=== PATIENT | female | born 1965 | race Caucasian/White ===

== ENCOUNTER 2018-09-06 08:56 | Emergency (ER) | payer OTHER ==
[2018-09-06 09:08] VITALS: BP 127/80
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
[2018-09-06] MEDS ORDERED: TETANUS/DIPHTHERIA/PERTUSSIS 0.5 ML SYRINGE IM ONE (10:09)
[2018-09-06] MEDS ORDERED: MUPIROCIN 2% OINT 1 GM TOP STA (10:09)
== END 2018-09-06 11:01 | disposition home or self-care (01) ==
LOC: ED 08:56
DX: S00.81XA Abrasion of other part of head, initial encounter (principal); I10 Essential (primary) hypertension; Y04.2XXA Assault by strike against or bumped into by another person, initial encounter; Y93.F9 Activity, other caregiving; Y92.238 Other place in hospital as the place of occurrence of the external cause; Y99.0 Civilian activity done for income or pay; Z23 Encounter for immunization
CPT/HCPCS: 90471; 90715; 99282; A9270

== ENCOUNTER 2018-12-29 21:34 | Emergency (ER) | payer BC ==
--- NOTE | 2018-12-29 21:39 | ED Physician Documentation ---
PD HPI MAJOR TRAUMA - Stated complaint Stated Complaint: INJ - Chief complaint Chief Complaint: Trauma Hd/Nk - History obtained from History obtained from: Patient - History of Present Illness Mechanism of injury: Fell (She tripped and fell and hit her face on the ground. She was briefly unconscious reportedly. Tetanus is up-to-date. 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 - Present Medications Home Medications: Ambulatory Orders Medication Instructions Recorded Confirmed Cyclobenzaprine [Flexeril] 10 mg PO 09/06/18 Levothyroxine [Synthroid] 125 mcg PO QDAC 09/06/18 09/06/18 Lisinopril 20 mg PO 09/06/18 09/06/18 Naproxen Sodium 220 mg PO 09/06/18 09/06/18 Omeprazole 20 mg PO 09/06/18 rOPINIRole [Requip] 0.25 mg PO QPM 09/06/18 09/06/18 raNITIdine [Zantac] 150 mg PO DAILY 09/06/18 09/06/18 - Allergies Allergies/Adverse Reactions: Allergies Allergy/AdvReac Type Severity Reaction Status Date / Time No Known Drug Allergies Allergy Verified 12/29/18 21:37 - Social History Does the pt smoke?: No Smoking Status: Never smoker - Immunizations Immunizations: TDAP >10years/unknown PD ED PE NORMAL - Vitals Vital signs reviewed: Yes - General General: Alert and oriented X 3, No acute distress - HEENT HEENT: PERRL, EOMI, Other (Abrasions over the left face with periorbital swelling on the left, but no obvious deformity.) - Neck Neck: No bony TTP - Cardiac Cardiac: RRR, No murmur - Respiratory Respiratory: No respiratory distress, Clear bilaterally - Abdomen Abdomen: Non tender - Derm Derm: Normal color, Warm and dry - Neuro Neuro: Alert and oriented 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, 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, Normal speech Results - Vitals Vitals: Vital Signs - 24 hr 12/29/18 21:35 Temperature 36.0 C L Heart Rate 100 Respiratory 18 Rate Blood Pressure 145/90 H O2 Saturation 96 Oxygen O2 Source Room air - Rads (name of study) CT Head/face/Cspine Radiology: EMP read contemporaneously (NAD) Departure - Departure Disposition: 01 Home, Self Care Clinical Impression: Facial contusion Qualifiers: Encounter type: initial encounter Qualified Code(s): S00.83XA - Contusion of other part of head, initial encounter Fall Qualifiers: Encounter type: initial encounter Qualified Code(s): W19.XXXA - Unspecified fall, initial encounter Head injury Qualifiers: Encounter type: initial encounter Qualified Code(s): S09.90XA - Unspecified injury of head, initial encounter Condition: Good Record reviewed to determine appropriate education?: Yes Instructions: ED Head Injury Closed Comments: Apply jjaf-dgg-rkmynwy bacitracin to your wounds 3 times a day. You can wash with soap and water. Return as needed for new or worsening symptoms. Your blood pressure was elevated today on check into the emergency department. This does not mean that you have hypertension, it is a common phenomenon to come to the emergency department and have elevated blood pressure. I recommend that you see your primary care physician within the week to have it rechecked when you are feeling better.
[2018-12-29] MEDS ORDERED: ONDANSETRON ODT 4 MG TABLET TL STA (21:57)
[2018-12-29] MEDS ORDERED: ACETAMINOPHEN 325 MG TABLET PO STA (22:18)
--- NOTE | 2018-12-29 22:48 | CT Report ---
Reason: head inj/facial inj Procedure Date: 12/29/2018 Accession Number: [id number] / [id number] Procedure: CT - CERVICAL SPINE WO CPT Code: FULL RESULT: EXAM: CT HEAD, MAXILLOFACIAL, CERVICAL SPINE EXAM DATE: 12/29/2018 10:17 PM. CLINICAL HISTORY: Injury to the left side of the face, laceration, swelling, pain, fell in the parking lot. COMPARISON: FACIAL BONES W/O 12/29/2018 10:07 PM CERVICAL SPINE W/O 12/29/2018 10:07 PM. TECHNIQUE: Noncontrast axial sections through the head, face, and cervical spine with multiplanar reconstructions through the face and cervical spine. FINDINGS: HEAD CT: Parenchyma: No intraparenchymal hemorrhage. No evidence of mass, midline shift, or CT findings of infarction. Ku-white differentiation is distinct. Extraaxial Spaces: Normal for age. No subdural or epidural collections identified. Ventricles: Normal in size and position. Bones: No evidence of fracture or calvarial defect. Other: Moderate left-sided periorbital soft tissue swelling. MAXILLOFACIAL CT: Bones: No fracture or bone lesion. Temporomandibular Joints: The temporomandibular joints are symmetric and normally located. Sinuses: Normal. No mucosal thickening or fluid levels. Other: Moderate left-sided periorbital soft tissue swelling. CERVICAL SPINE CT: Alignment: Normal. No scoliosis or spondylolisthesis. Bones: No fracture or bone lesion. Interspace Levels/Facets: There is no significant central canal stenosis demonstrated. Other: The paravertebral and prevertebral soft tissues are normal. The lung apices are clear. IMPRESSION: Head CT: 1. No acute intracranial abnormality. 2. Moderate left-sided periorbital and frontal region soft tissue swelling. Maxillofacial CT: 1. No acute osseous abnormality demonstrated. 2. Moderate left periorbital and frontal region soft tissue swelling. Cervical spine CT: 1. No acute osseous abnormality demonstrated. RADIA
--- NOTE | 2018-12-29 22:48 | CT Report ---
Reason: head inj/facial inj Procedure Date: 12/29/2018 Accession Number: [id number] / [id number] Procedure: CT - HEAD WO CPT Code: FULL RESULT: EXAM: CT HEAD, MAXILLOFACIAL, CERVICAL SPINE EXAM DATE: 12/29/2018 10:17 PM. CLINICAL HISTORY: Injury to the left side of the face, laceration, swelling, pain, fell in the parking lot. COMPARISON: FACIAL BONES W/O 12/29/2018 10:07 PM CERVICAL SPINE W/O 12/29/2018 10:07 PM. TECHNIQUE: Noncontrast axial sections through the head, face, and cervical spine with multiplanar reconstructions through the face and cervical spine. FINDINGS: HEAD CT: Parenchyma: No intraparenchymal hemorrhage. No evidence of mass, midline shift, or CT findings of infarction. Ku-white differentiation is distinct. Extraaxial Spaces: Normal for age. No subdural or epidural collections identified. Ventricles: Normal in size and position. Bones: No evidence of fracture or calvarial defect. Other: Moderate left-sided periorbital soft tissue swelling. MAXILLOFACIAL CT: Bones: No fracture or bone lesion. Temporomandibular Joints: The temporomandibular joints are symmetric and normally located. Sinuses: Normal. No mucosal thickening or fluid levels. Other: Moderate left-sided periorbital soft tissue swelling. CERVICAL SPINE CT: Alignment: Normal. No scoliosis or spondylolisthesis. Bones: No fracture or bone lesion. Interspace Levels/Facets: There is no significant central canal stenosis demonstrated. Other: The paravertebral and prevertebral soft tissues are normal. The lung apices are clear. IMPRESSION: Head CT: 1. No acute intracranial abnormality. 2. Moderate left-sided periorbital and frontal region soft tissue swelling. Maxillofacial CT: 1. No acute osseous abnormality demonstrated. 2. Moderate left periorbital and frontal region soft tissue swelling. Cervical spine CT: 1. No acute osseous abnormality demonstrated. RADIA
--- NOTE | 2018-12-29 22:48 | CT Report ---
Reason: head inj/facial inj Procedure Date: 12/29/2018 Accession Number: [id number] / [id number] Procedure: CT - MAXILLOFACIAL WO CPT Code: FULL RESULT: EXAM: CT HEAD, MAXILLOFACIAL, CERVICAL SPINE EXAM DATE: 12/29/2018 10:17 PM. CLINICAL HISTORY: Injury to the left side of the face, laceration, swelling, pain, fell in the parking lot. COMPARISON: FACIAL BONES W/O 12/29/2018 10:07 PM CERVICAL SPINE W/O 12/29/2018 10:07 PM. TECHNIQUE: Noncontrast axial sections through the head, face, and cervical spine with multiplanar reconstructions through the face and cervical spine. FINDINGS: HEAD CT: Parenchyma: No intraparenchymal hemorrhage. No evidence of mass, midline shift, or CT findings of infarction. Ku-white differentiation is distinct. Extraaxial Spaces: Normal for age. No subdural or epidural collections identified. Ventricles: Normal in size and position. Bones: No evidence of fracture or calvarial defect. Other: Moderate left-sided periorbital soft tissue swelling. MAXILLOFACIAL CT: Bones: No fracture or bone lesion. Temporomandibular Joints: The temporomandibular joints are symmetric and normally located. Sinuses: Normal. No mucosal thickening or fluid levels. Other: Moderate left-sided periorbital soft tissue swelling. CERVICAL SPINE CT: Alignment: Normal. No scoliosis or spondylolisthesis. Bones: No fracture or bone lesion. Interspace Levels/Facets: There is no significant central canal stenosis demonstrated. Other: The paravertebral and prevertebral soft tissues are normal. The lung apices are clear. IMPRESSION: Head CT: 1. No acute intracranial abnormality. 2. Moderate left-sided periorbital and frontal region soft tissue swelling. Maxillofacial CT: 1. No acute osseous abnormality demonstrated. 2. Moderate left periorbital and frontal region soft tissue swelling. Cervical spine CT: 1. No acute osseous abnormality demonstrated. RADIA
[2018-12-29] MEDS ORDERED: HYDROcod/ACET 5/325 Prepack 4 PO STA (22:51)
[2018-12-29 23:04] VITALS: BP 138/84
== END 2018-12-29 23:04 | disposition home or self-care (01) ==
LOC: ED 21:34
DX: S00.81XA Abrasion of other part of head, initial encounter (principal); S00.83XA Contusion of other part of head, initial encounter; S09.90XA Unspecified injury of head, initial encounter; W01.0XXA Fall on same level from slipping, tripping and stumbling without subsequent striking against object, initial encounter; Y92.481 Parking lot as the place of occurrence of the external cause; I10 Essential (primary) hypertension
CPT/HCPCS: 70450; 70486; 72125; 99282; 99283; A9270; Q0162

== ENCOUNTER 2019-07-30 06:34 | Outpatient (CLI) | payer BC ==
[2019-07-30 06:50] LABS: BASOPHILS # (AUTO) 0.1 10^3/uL (0.0-0.1); BASOPHILS % (AUTO) 0.9 %; EOSINOPHILS # (AUTO) 0.1 10^3/uL (0.0-0.7); EOSINOPHILS % (AUTO) 1.8 %; HGB - HEMOGLOBIN 12.7 g/dL (12.0-16.0); LYMPHOCYTES # (AUTO) 1.8 10^3/uL (1.5-3.5); MEAN CORPUSCULAR HEMOGLOBIN 27.2 pg (27.0-31.0); MEAN CORPUSCULAR HGB CONC 32.6 g/dL (32.0-36.0); MEAN CORPUSCULAR VOLUME 83.5 fL (81.0-99.0); MONOCYTES # (AUTO) 0.5 10^3/uL (0.0-1.0); MONOCYTES % (AUTO) 8.8 %; NEUTROPHILS # (AUTO) 3.2 10^3/uL (1.5-6.6); NEUTROPHILS % (AUTO) 56.3 %; PLT - PLATELET COUNT 363 10^3/uL (130-450); RED BLOOD COUNT 4.67 10^6/uL (4.20-5.40); RED CELL DISTRIBUTION WIDTH 13.6 % (12.0-15.0); WHITE BLOOD COUNT 5.6 x10^3/uL (4.8-10.8)
[2019-07-30 07:11] LABS: ALBUMIN 4.5 g/dL (3.2-5.5); ALBUMIN/GLOBULIN RATIO 1.6 (1.0-2.2); ALKALINE PHOSPHATASE 53 IU/L (42-121); ALT ALANINE AMINOTRANSFERASE 18 IU/L (10-60); AST ASPARTATE AMINOTRANSFERASE 23 IU/L (10-42); BILIRUBIN,TOTAL 0.6 mg/dL (0.2-1.0); BUN - BLOOD UREA NITROGEN 16 mg/dL (6-20); CALCIUM 9.3 mg/dL (8.5-10.3); CARBON DIOXIDE - CO2 27 mmol/L (21-32); CHLORIDE 102 mmol/L (101-111); CHOLESTEROL 249 mg/dL; CREATININE 0.8 mg/dL (0.4-1.0); GFR - MDRD 75 (>89); GLUCOSE 112 mg/dL (70-100); HDL CHOLESTEROL 50 mg/dL; LDL CHOLESTEROL,CALCULATED 157 mg/dL; LDL/HDL RATIO 3.1 (<4.4); SODIUM 139 mmol/L (135-145); TOTAL PROTEIN 7.3 g/dL (6.7-8.2); VLDL CHOLESTEROL 42 mg/dL
[2019-07-30 07:31] LABS: HB2 TOTAL 13.3 g/dL; HEMOGLOBIN A1C 0.49 g/dL; HEMOGLOBIN A1C % 5.5 % (4.6-6.2)
== END 2019-07-30 06:35 | disposition home or self-care (01) ==
LOC: LAB 06:34
PROVIDERS: ATTEND Physician Assistant
DX: Z00.00 Encounter for general adult medical examination without abnormal findings (principal); I10 Essential (primary) hypertension; E78.5 Hyperlipidemia, unspecified; E03.9 Hypothyroidism, unspecified
CPT/HCPCS: 36415; 80053; 80061; 83036; 83721; 84443; 85025

== ENCOUNTER 2020-02-29 07:36 | Outpatient (CLI) | payer BC | END 2020-02-29 07:37 | disposition home or self-care (01) | LOC: LAB 07:36 | PROVIDERS: ATTEND Nurse Practitioner Family | DX: E03.9 Hypothyroidism, unspecified (principal) | CPT/HCPCS: 36415; 84443 ==

== ENCOUNTER 2020-03-11 11:17 | Emergency (ER) | payer BC ==
--- NOTE | 2020-03-11 11:21 | ED Physician Documentation ---
PD HPI ABD PAIN - Stated complaint Stated Complaint: ABD PX - History obtained from History obtained from: Patient - History of Present Illness Timing - onset: How many days ago (few) Timing - duration: Days (few) Timing - details: Gradual onset, Still present (worse this morning), Waxing and waning Quality: Aching, Sharp, Pain Location: RUQ, Epigastric Radiation: Upper back (right scapula) Improved by: No: Eating, Laying still Worsened by: Eating, Palpation. No: Breathing Associated symptoms: Nausea. No: Fever, Vomiting, Diarrhea Similar symptoms before: Has not had sx before Recently seen: Not recently seen Review of Systems Constitutional: denies: Fever, Chills, Myalgias Nose: denies: Rhinorrhea / runny nose, Congestion Throat: denies: Sore throat Respiratory: denies: Cough GI: reports: Abdominal Pain, Nausea. 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 03/11/20 Ondansetron Odt [Zofran] 4 mg TL Q6H PRN #10 tablet 03/11/20 Sucralfate [Carafate] 1 gm PO ACHS #60 tablet 03/11/20 - Allergies Allergies/Adverse Reactions: Allergies Allergy/AdvReac Type Severity Reaction Status Date / Time No Known Drug Allergies Allergy Verified 03/11/20 11:58 - Social History Does the pt smoke?: No Smoking Status: Never smoker Does the pt drink ETOH?: Yes Does the pt have substance abuse?: No - Immunizations Immunizations: TDAP >10years/unknown PD ED PE NORMAL - Vitals Vital signs reviewed: Yes - General General: Alert and oriented X 3, Well developed/nourished, Other (appears uncomfortable due to upper abd pain) - HEENT HEENT: Moist mucous membranes, Pharynx benign - Neck Neck: Supple, no meningeal sign, No adenopathy - Cardiac Cardiac: RRR, No murmur - Respiratory Respiratory: Clear bilaterally - Abdomen Abdomen: Normal bowel sounds, Soft, Non distended, No organomegaly, Other (tender epigastric and RUQ with positive Silva's. Some percussion tenderness and rebound. No referred tenderness. ) - Female Female : Deferred - Rectal Rectal: Deferred - Back Back: No CVA TTP - Derm Derm: Normal color, Warm and dry, No rash - Extremities Extremities: Normal ROM s pain, No edema, No calf tenderness / cord - Neuro Neuro: Alert and oriented X 3, No motor deficit, Normal speech Eye Opening: Spontaneous Motor: Obeys Commands Verbal: Oriented GCS Score: 15 Results - Vitals Vitals: Vital Signs - 24 hr 03/11/20 03/11/20 03/11/20 11:25 13:44 15:00 Temperature 36.9 C 36.6 C Heart Rate 81 77 73 Respiratory 16 14 20 Rate Blood Pressure 144/88 H 126/82 H 139/75 H O2 Saturation 100 97 99 Oxygen O2 Source Room air - Labs Labs: Laboratory Tests 03/11/20 03/11/20 03/11/20 11:33 11:33 12:12 WBC 6.2 RBC 4.91 Hgb 13.5 Hct 41.4 MCV 84.3 MCH 27.5 MCHC 32.6 RDW 13.4 Plt Count 381 MPV 9.0 Neut # (Auto) 3.8 Lymph # (Auto) 1.8 [place] # (Auto) 0.4 Eos # (Auto) 0.1 Baso # (Auto) 0.0 Absolute Nucleated RBC 0.00 Nucleated RBC % 0.0 Sodium 135 Potassium 3.6 Chloride 101 Carbon Dioxide 22 Anion Gap 12.0 BUN 15 Creatinine 0.8 Estimated GFR (MDRD) 75 L Glucose 131 H Calcium 9.4 Total Bilirubin 0.9 AST 24 ALT 17 Alkaline Phosphatase 63 Total Protein 7.9 Albumin 4.6 Globulin 3.3 Albumin/Globulin Ratio 1.4 Lipase 26 Urine Color YELLOW Urine Clarity CLEAR Urine pH 6.5 Ur Specific [place] 1.015 Urine Protein NEGATIVE Urine Glucose (UA) NEGATIVE Urine Ketones NEGATIVE Urine Occult Blood NEGATIVE Urine Nitrite NEGATIVE Urine Bilirubin NEGATIVE Urine Urobilinogen 0.2 (NORMAL) Ur Leukocyte Esterase TRACE H Urine RBC None Seen Urine WBC 4-5 Ur Squamous Epith Cells RARE Squamous Urine Bacteria Rare Ur Microscopic Review INDICATED Urine Culture Comments INDICATED - Rads (name of study) RUQ U/S Radiology: Prelim report reviewed (no acute process, normal GB.), See rad report CT abd Radiology: Prelim report reviewed (normal exam), See rad report PD MEDICAL DECISION MAKING - ED course Complexity details: reviewed results (considered gallbladder initially but U/S normal. Labs good too, so not pancreatic nor liver. Got CT to eval for diverticulitis, perf ulcer, other process. This was normal as well. Pain in that area, worse with eating and some improved with GI cocktail, presume some duodenitis. ), considered differential, d/w patient Departure - Departure Disposition: 01 Home, Self Care Clinical Impression: Upper abdominal pain, Gastritis/duodenitis Condition: Stable Record reviewed to determine appropriate education?: Yes Instructions: ED PUD Vs Gastritis, ED Epigastric Pain [facility] Follow-Up: Raquel Mejía PA [Primary Care Provider] - Prescriptions: Hydrocodone/Acetaminophen [Bland 5-325 Tablet] 1 each PO Q6H PRN #15 tablet PRN Reason: Pain Omeprazole 20 mg PO DAILY #30 capsule. Ondansetron Odt [Zofran] 4 mg TL Q6H PRN #10 tablet PRN Reason: Nausea / Vomiting Sucralfate [Carafate] 1 gm PO ACHS #60 tablet Comments: Your ultrasound and CT scan as well as your labs appear normal. I presume therefore it is likely to be gastritis or duodenitis given the location of the pain in these typically would not show well on the imaging test. Continue your famotidine. Add omeprazole daily for the next couple of weeks at least. For the next 5 to 7 days, also add sacral fate 3-4 times a day to help coat the stomach and duodenum. Add ondansetron if needed for nausea and Tylenol 4 times a day if needed for pain. Avoid NSAIDs. If needed for worse pain, add hydrocodone. Follow-up with your primary care in the next several days to week. If not improving, they may want to arrange for an EGD (scope). Discharge Date/Time: 03/11/20 15:29
[2020-03-11] MEDS ORDERED: SODIUM CHLORIDE 0.9% 1,000 ML IV STA (11:34)
[2020-03-11] MEDS ORDERED: ONDANSETRON 4 MG/2 ML VIAL IVP STA (11:34)
[2020-03-11] MEDS ORDERED: HYDROmorphone 1 MG/ML CARPUJECT IVP STA (11:34)
[2020-03-11 11:41] LABS: BASOPHILS % (AUTO) 0.6 %; EOSINOPHILS # (AUTO) 0.1 10^3/uL (0.0-0.7); EOSINOPHILS % (AUTO) 1.9 %; HGB - HEMOGLOBIN 13.5 g/dL (12.0-16.0); LYMPHOCYTES # (AUTO) 1.8 10^3/uL (1.5-3.5); LYMPHOCYTES % (AUTO) 29.7 %; MEAN CORPUSCULAR HEMOGLOBIN 27.5 pg (27.0-31.0); MEAN CORPUSCULAR HGB CONC 32.6 g/dL (32.0-36.0); MEAN CORPUSCULAR VOLUME 84.3 fL (81.0-99.0); MONOCYTES # (AUTO) 0.4 10^3/uL (0.0-1.0); MONOCYTES % (AUTO) 6.6 %; NEUTROPHILS # (AUTO) 3.8 10^3/uL (1.5-6.6); NEUTROPHILS % (AUTO) 60.9 %; PLT - PLATELET COUNT 381 10^3/uL (130-450); RED BLOOD COUNT 4.91 10^6/uL (4.20-5.40); RED CELL DISTRIBUTION WIDTH 13.4 % (12.0-15.0); WHITE BLOOD COUNT 6.2 x10^3/uL (4.8-10.8)
[2020-03-11 11:55] LABS: ALBUMIN 4.6 g/dL (3.2-5.5); ALBUMIN/GLOBULIN RATIO 1.4 (1.0-2.2); BILIRUBIN,TOTAL 0.9 mg/dL (0.2-1.0); CALCIUM 9.4 mg/dL (8.5-10.3); CREATININE 0.8 mg/dL (0.4-1.0); TOTAL PROTEIN 7.9 g/dL (6.7-8.2)
[2020-03-11 12:20] LABS: BILIRUBIN,URINE NEGATIVE (NEGATIVE); GLUCOSE, URINE (UA) NEGATIVE (NEGATIVE); KETONES,URINE (UA) NEGATIVE (NEGATIVE); LEUKOCYTE ESTERASE, URINE TRACE (NEGATIVE); NITRITE,URINE NEGATIVE (NEGATIVE); OCCULT BLOOD,URINE NEGATIVE (NEGATIVE); PH,URINE 6.5 PH (5.0-7.5); PROTEIN,URINE NEGATIVE (NEGATIVE); UROBILINOGEN,URINE 0.2 (NORMAL) E.U./dL (NORMAL)
[2020-03-11 12:24] LABS: CLARITY,URINE CLEAR (CLEAR)
[2020-03-11 12:33] LABS: RBC,URINE None Seen /HPF (0-5)
[2020-03-11 12:34] LABS: BACTERIA,URINE Rare /HPF (None Seen); SQUAMOUS EPITHELIAL CELL,UR RARE Squamous (<= Few)
[2020-03-11] MEDS ORDERED: KETOROLAC 30 MG/ML VIAL IVP STA (12:53)
[2020-03-11] MEDS ORDERED: FAMOTIDINE 20 MG/2 ML SYRINGE IVP STA (12:55)
--- NOTE | 2020-03-11 13:11 | Ultrasound Report ---
Reason: RUQ abd pain 2 days, worse this morning Procedure Date: 03/11/2020 Accession Number: [id number] / [id number] Procedure: US - Abdomen Limited CPT Code: Final Report FULL RESULT: PROCEDURE: Abdomen Limited INDICATIONS: RUQ abd pain 2 days, worse this morning TECHNIQUE: Real-time focused scanning was performed of the abdomen, with image documentation. COMPARISON: None FINDINGS: Liver is echogenic, likely representing fatty change. No liver masses seen. Gallbladder is unremarkable. No gallstones. No gallbladder wall thickening or sonographic Silva sign. No dilated ducts. Common hepatic duct measures 3 mm. Common bile duct measures 4 mm. Pancreas is poorly visualized secondary to overlying bowel gas. Right kidney measures 11.0 cm. No right hydronephrosis. IMPRESSION: 1. Hepatic steatosis. 2. Unremarkable gallbladder. Reviewed by: Hussein Warren MD on 03/11/2020 1:10 PM PDT Approved by: Hussein Warren MD on 03/11/2020 1:10 PM PDT Station ID: [id number]
[2020-03-11] MEDS ORDERED: MAG HYDROX/AL HYDROX/SIMETH 30 ML UDC PO STA (13:54)
[2020-03-11] MEDS ORDERED: LIDOCAINE VISCOUS 2% 15 ML UDC MM STA (13:54)
[2020-03-11] MEDS ORDERED: IOVERSOL 320 100 ML VIAL IVP ONE ×2 (14:03→14:27)
--- NOTE | 2020-03-11 14:35 | CT Report ---
Reason: upper abd pain for few days Procedure Date: 03/11/2020 Accession Number: [id number] / [id number] Procedure: CT - Abdomen/Pelvis W CPT Code: Final Report FULL RESULT: PROCEDURE: Abdomen/Pelvis W INDICATIONS: upper abd pain for few days CONTRAST: IV CONTRAST: Optiray 320 ml: 100 PO CONTRAST: *NO PO CONTRAST TECHNIQUE: After the administration of intravenous contrast, 5 mm thick sections acquired from the diaphragms to the symphysis. 5 mm thick coronal and sagittal reformats were acquired. For radiation dose reduction, the following was used: automated exposure control, adjustment of mA and/or kV according to patient size. COMPARISON: None. FINDINGS: Image quality: Excellent. ABDOMEN: Lung bases: Lung bases are clear. Heart size is normal. Solid organs: Liver and spleen are normal in size and enhancement. Mild hepatic steatosis is seen. No discrete hepatic lesion. Gallbladder is within normal limits Biliary system is non dilated. Pancreas enhances normally. No adrenal nodules. Kidneys demonstrate normal size and enhancement, without hydronephrosis. 2 mm nonobstructing stone in lower pole of right kidney is seen. Peritoneum and bowel: Unopacified the bowel loops demonstrate normal wall thickness and caliber. No free fluid or air. Appendix is visualized and is within normal limits. Nodes and vessels: No retroperitoneal or mesenteric adenopathy by size criteria. Aorta and inferior vena cava are normal in size. Miscellaneous: Small umbilical hernia is seen containing fat only.. PELVIS: Genitourinary: Bladder wall thickness is normal. Miscellaneous: No inguinal hernias or adenopathy. Bones: No suspicious bony lesions. No vertebral body compression fractures. Degenerative endplate changes and decreased intervertebral disc space at L5-S1 level is seen. IMPRESSION: 1. Mild hepatic steatosis. No discrete hepatic lesion. Normal-appearing gallbladder. 2. No bowel obstruction. No free fluid or free air. Normal appendix. 3. Nonobstructing right renal stone. No hydronephrosis. Reviewed by: Angelo Burrell MD on 03/11/2020 2:34 PM PDT Approved by: Angelo Burrell MD on 03/11/2020 2:34 PM PDT Station ID: [id number]
[2020-03-11] MEDS ORDERED: MORPHINE 2 MG/ML CARPUJECT IVP STA (14:39)
[2020-03-11 15:04] VITALS: BP 139/75
== END 2020-03-11 15:29 | disposition home or self-care (01) ==
LOC: ED 11:17
DX: K29.70 Gastritis, unspecified, without bleeding (principal); K29.80 Duodenitis without bleeding; K76.0 Fatty (change of) liver, not elsewhere classified; I10 Essential (primary) hypertension
CPT/HCPCS: 36415; 74177; 76705; 80053; 81001; 83690; 85025; 87086; 96361; 96374; 96375; 99284; A9270; Q9967; 81003

== ENCOUNTER 2021-04-05 09:34 | Outpatient (CLI) | payer BC ==
--- NOTE | 2021-04-19 07:08 | Mammography Report ---
BILATERAL DIGITAL SCREENING MAMMOGRAM 3D/2D: 04/05/2021 CLINICAL: Routine screening. No prior exams were available for comparison. There are scattered fibroglandular elements in both br easts. No significant masses, calcifications, or other findings are seen in either breast. IMPRESSION: NEGATIVE There is no mammographic evidence of malignancy. A 1 year screening mammogram is recommended. This exam was interpreted at Station ID: [id number]. NOTE: For mammograms, a report in lay terms will be sent to the patient. Approximately 15% of breast malignancies will not be visualized mammographically. In the management of a palpable breast mass, a negative mammogram must not discourage biopsy of a clinically suspicious lesion. Electronically Signed By: Meng saxena/karl:04/16/2021 13:50:27 ACR BI-RADS Category 1: Negative 3341F PARENCHYMAL PATTERN: (A) - The breast(s) demonstrate(s) scattered fibroglandular densities. BI-RADS CATEGORY: (1) - 1 RECOMMENDATION: (ANNUAL) - Recommend routine annual screening mammography. [id number] 1 year screening LATERALITY: (B)
== END 2021-04-05 09:35 | disposition home or self-care (01) ==
LOC: DI 09:34
DX: Z12.31 Encounter for screening mammogram for malignant neoplasm of breast (principal)

== ENCOUNTER 2021-04-09 06:39 | Outpatient (CLI) | payer BC ==
[2021-04-09 07:03] LABS: BASOPHILS % (AUTO) 0.5 %; EOSINOPHILS # (AUTO) 0.1 10^3/uL (0.0-0.7); EOSINOPHILS % (AUTO) 2.3 %; HCT - HEMATOCRIT 39.6 % (37.0-47.0); HGB - HEMOGLOBIN 12.9 g/dL (12.0-16.0); LYMPHOCYTES % (AUTO) 33.4 %; MEAN CORPUSCULAR HEMOGLOBIN 26.8 pg (27.0-31.0); MEAN CORPUSCULAR HGB CONC 32.6 g/dL (32.0-36.0); MEAN CORPUSCULAR VOLUME 82.2 fL (81.0-99.0); MEAN PLATELET VOLUME 9.1 fL (7.9-10.8); MONOCYTES # (AUTO) 0.4 10^3/uL (0.0-1.0); MONOCYTES % (AUTO) 7.2 %; NEUTROPHILS # (AUTO) 3.4 10^3/uL (1.5-6.6); NEUTROPHILS % (AUTO) 56.3 %; PLT - PLATELET COUNT 328 10^3/uL (130-450); RED BLOOD COUNT 4.82 10^6/uL (4.20-5.40); RED CELL DISTRIBUTION WIDTH 13.5 % (12.0-15.0); WHITE BLOOD COUNT 6.1 x10^3/uL (4.8-10.8)
[2021-04-09 07:15] LABS: ALBUMIN 4.7 g/dL (3.2-5.5); ALBUMIN/GLOBULIN RATIO 1.6 (1.0-2.2); ALKALINE PHOSPHATASE 56 IU/L (42-121); ALT ALANINE AMINOTRANSFERASE 15 IU/L (10-60); AST ASPARTATE AMINOTRANSFERASE 21 IU/L (10-42); BILIRUBIN,TOTAL 0.7 mg/dL (0.2-1.0); BUN - BLOOD UREA NITROGEN 17 mg/dL (6-20); CALCIUM 9.1 mg/dL (8.5-10.3); CARBON DIOXIDE - CO2 25 mmol/L (21-32); CHLORIDE 98 mmol/L (101-111); CHOL/HDL RATIO 5.1 (<4.4); CHOLESTEROL 265 mg/dL; CREATININE 0.8 mg/dL (0.4-1.0); GFR - MDRD 75 (>89); GLUCOSE 127 mg/dL (70-100); HDL CHOLESTEROL 52 mg/dL; LDL CHOLESTEROL,CALCULATED 159 mg/dL; LDL/HDL RATIO 3.1 (<4.4); POTASSIUM 3.8 mmol/L (3.5-5.0); SODIUM 135 mmol/L (135-145); TOTAL PROTEIN 7.7 g/dL (6.7-8.2); TRIGLYCERIDES 269 mg/dL; VLDL CHOLESTEROL 54 mg/dL
[2021-04-09 07:28] LABS: THYROID STIMULATING HORMONE 3.12 uIU/mL (0.34-5.60)
== END 2021-04-09 06:40 | disposition home or self-care (01) ==
LOC: LAB 06:39
PROVIDERS: ATTEND Nurse Practitioner Family
DX: E78.5 Hyperlipidemia, unspecified (principal); I10 Essential (primary) hypertension; E03.9 Hypothyroidism, unspecified
CPT/HCPCS: 36415; 80053; 80061; 83721; 84443; 85025

== ENCOUNTER 2021-05-06 10:20 | Outpatient (CLI) | payer BC ==
[2021-05-06 10:59] VITALS: BP 141/88
--- NOTE | 2021-05-06 10:59 | SLEEP CARE CONSULTATION ---
Information from patient questionnaire entered by Jacque Ferrell. I have reviewed and concur with the information entered by Jacque Ferrell. This document represents the service I personally performed and the decisions made by me, Qi Dominguez ARNP. History of Present Illness Service Date and Time: 05/06/2021 1020 Reason for Visit: New patient Chief Complaint: reports: Insomnia, Unrefreshed sleep, Snoring, Fatigue Date of Onset: years Usual bedtime: 10 pm Time it takes to fall asleep: an hour Snores at night: Yes Observed to quit breathing while asleep: No Sleeps alone due to snoring: No Number of times waking at night: 1-2 Reasons for waking at night: reports: Snoring (will wake up dry and need water), Bathroom, Other (unknown reason) Toss, Turn, or Twitch while sleeping: Yes Recalls having dreams: Yes Usually gets out of bed at: 6 am on work days Feels refreshed in the morning: Yes (sometimes) Morning headache: No Sleepy or fatigued during the day: Yes Ever fallen asleep while driving: No (no drowsy driving) Takes day naps: No Prior sleep studies: No Additional HPI information: I had the pleasure of seeing ANDREAS PEREZ today regarding the possibility of her having a sleep disorder. Her current complaints are insomnia, snoring and unrefreshed sleep. She snores loudly and feels that her throat is swollen, hoarse and dry occasionally. She visited her daughter who is training as a DIETARY SERVICES MANAGER and was told to get a sleep study. She did not say she had any pauses in breathing while asleep. She does not wake up feeling rested. She does get tired during the day but as long as she is active/moving around she is okay. She does not nap at all. She states it normally takes about 1 hour to fall asleep. She wakes up only 1-2 times a night and has woken herself up snoring with dry throat. Her father and a sibling have sleep apnea and are being treated. - Parasomnia Symptoms Ever been unable to move upon waking from sleep: No Walks in sleep: No Talks in sleep: No Ever acted out dreams in sleep: No Ever felt weak in the knees when startled or emotional: No Bothered by creepy, crawly, restless sensations in legs: No Problems with memory or concentration: Yes (usually when doesn't sleep well, hard to concentrate/remember) Subjective Initial [place] Sleepiness Scale score: 4 (in 2020) Past Medical History Past Medical History: reports: Hypertension, Claustrophobia, Diabetes (controlled type 2), Hypothyroidism, Depression, GERD Social History 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 Patient is and lives in [place]. Have you smoked in the past 12 months: No Alcohol use: Yes Alcohol amount and frequency: 1 drink 3-4 times a week Caffeine use: Yes Caffeine amount and frequency: 1-2 drinks daily Family History Family history of sleep disordered breathing: Yes Family Hx Sleep Apnea: Father: Snoring, Sleep apnea - Treated, Sibling: Snoring, Sleep apnea - Treated Allergies and Home Medications Drug allergies reviewed: Yes (NKDA) Home medication list reviewed: Yes Allergy and home medication list: Famotidine Levothyroxine Fenofibrate Losartan Venlafaxine HCL Ropinerole Zolpidem Review of Systems Weight gain over past 5 years: 07-20 Cardiovascular: reports: high blood pressure Gastrointestinal: denies: heartburn Neurological: denies: headaches Psychiatric: reports: depression Ear/Nose/Throat: reports: nasal congestion, dry mouth/throat, wisdom teeth removed. denies: injury to nose, tonsillectomy Endocrine: reports: thyroid disease, too hot or cold Immunologic: denies: allergies to food or environment Physical Exam Blood Pressure: 141/88 Cuff size: long Heart Rate: 69 O2 Saturation: 96 Height: 4 ft 10 in Weight: 164 lb 9.6 oz Body Mass Index: 34.4 BMI Classification: Obese Neck circumference: 15.5 (inches) Nostrils: patent to airflow Mouth and throat: narrow oropharynx Soft palate: long Hard palate: normal Uvula: normal Uvula visualization: 50% Mallampati Class II Tongue: normal in size Tonsils: 1+ Neck: normal w/o lymphadenopathy or thyromegaly Heart: regular rate and rhythm Lungs: clear bilaterally Impression and Plan 1. Suspected Obstructive Sleep Apnea-Hypopnea Syndrome, as suggested by a history of loud and irregular snoring, unrefreshed sleep, cognitive impairment, and excessive daytime sleepiness. Narrow oropharynx and obesity are common predisposing factors for obstructive sleep apnea-hypopnea syndrome. I recommend proceeding to polysomnography to confirm the diagnosis and to assess severity. If the patient has significant sleep disordered breathing, a manual CPAP titration study will also be performed to find the optimal treatment pressure. I informed the patient of what the sleep studies involve and after some discussion, obtained agreement to proceed. The pathophysiology of obstructive sleep apnea-hypopnea syndrome was discussed with the patient and health risks of cardiovascular and cerebrovascular disease if not treated. [facility] brochure for obstructive sleep apnea-hypopnea syndrome given and reviewed. Risks of drowsy driving discussed in detail and patient advised to avoid long distance driving and to drum puller at the first sign of drowsiness. Patient agreed to plan. * Schedule polysomnography +- manual CPAP titration study and return in 1-2 weeks after the study to discuss result and initiate therapy. * Avoid long distance driving or driving when feeling sleepy. * Avoid alcohol, sedative and muscle relaxant around bedtime. * Attempt to lose weight. * Review instructions provided by trained office staff on how to prepare for the sleep study. * Return for follow-up after sleep study completed. Counseling Topics: Weight loss health impact Visit Type: In Office Time Spent with Patient (minutes): 30 Provider Statement: I spent 100% of the Face to Face Visit with the patient with greater than 50% spent counseling the patient and coordination of care.
== END 2021-05-06 10:21 | disposition home or self-care (01) ==
LOC: SC 10:20
PROVIDERS: ATTEND Nurse Practitioner Family
DX: G47.10 Hypersomnia, unspecified (principal); R41.89 Other symptoms and signs involving cognitive functions and awareness; G47.8 Other sleep disorders; R06.83 Snoring; E66.9 Obesity, unspecified; Z68.34 Body mass index [BMI] 34.0-34.9, adult
CPT/HCPCS: 99203; 99212

== ENCOUNTER 2021-05-11 12:21 | Outpatient (CLI) | payer BC | END 2021-05-11 12:22 | disposition home or self-care (01) | LOC: SC 12:21 | PROVIDERS: ATTEND Nurse Practitioner Family | DX: G47.33 Obstructive sleep apnea (adult) (pediatric) (principal); R09.02 Hypoxemia | CPT/HCPCS: 95806 ==

== ENCOUNTER 2021-05-25 09:28 | Outpatient (CLI) | payer BC ==
--- NOTE | 2021-05-25 09:48 | SLEEP CARE CONSULTATION ---
Information from patient questionnaire entered by Jacque Ferrell. I have reviewed and concur with the information entered by Jacque Ferrell. This document represents the service I personally performed and the decisions made by , Qi Dominguez ARNP. History of Present Illness Service Date and Time: 05/25/2021927 Initial [place] Sleepiness Scale score: 4 (in 2020) Current [place] Sleepiness Scale score: 1 Additional HPI information: ANDREAS PEREZ returns for follow up and results of the recently performed home sleep study. I explained the pathophysiology behind obstructive sleep apnea. We then spent quite a bit of time discussing different treatment options. For mild obstructive sleep apnea, surgery and oral appliance are alternatives to nasal CPAP therapy but in moderate or severe cases, nasal CPAP is the most effective and reliable treatment. Because apnea is primarily in supine position, then positional management therapy could be effective. Methods discussed such as positioning with pillows, using a T-shirt with tennis balls in the back, and shown commercial products that have a pillow format on back to prevent supine sleep. I reviewed the impact of weight changes on sleep apnea and strongly recommended losing weight. After some discussion, the patient opted to go with the nasal CPAP therapy. Nasal autoCPAP set at 4-15 cmH20 will be ordered with rationale explained. A manual titration study will be ordered if unable to find optimal pressure with office adjustments. I explained how CPAP machine works with sample devices Respironics Dreamstation and ResTristar [id number] and what to expect when using the machine. Using CPAP every night in order to get used to it was emphasized. Patient advised to put CPAP mask on before getting into bed so as not to fall asleep without CPAP. To assist acclimation to CPAP use, it could also be used for a short time during day while reading or watching TV. The patient was instructed to call the CPAP supplier to discuss any mechanical problem that may occur. If the mask given is uncomfortable or is difficult to keep on through the night even with adjustment, contact the CPAP supplier as many will replace with another mask style if notified before 30 days. If snoring or perceives is not getting enough air or too much air from the machine, notify this office. [facility] patient education PAP tips reviewed and given to patient. Patient counseled not drink alcohol less than 4 hours before bedtime as it can increase snoring and apnea. Patient was cautioned about risks of drowsy driving until sleepiness symptoms resolve. Sleep Study - Results Type of Sleep Study: Home sleep study Prior sleep studies: No Polysomnography/Home Sleep Study results: Physician Impression: The quality of the study is good. The length of the study is not optimal (< 240 minutes). Please also see the tabulated and graphic data. 1. Obstructive Sleep Apnea-Hypopnea (ICD-10 G47.33), moderate, with an AHI of 20.8/hr and priyanka SaO2 of 85%. During the study, the patient had 24 apneas (24 obstructive, 0 central, 0 mixed) and 47 hypopneas. The longest episode lasted 45.0 seconds. The respiratory events occurred more frequently during supine sleep (supine AHI was 39.4 and non-supine, 15.72). 2. Hypoxemia (ICD-10 R09.02), mild, with the lowest oxygen saturation of 85 % and 5.7 minutes with SaO2 under 90%. Baseline oxygen saturation was normal (Average oxygen saturation was 93%). Allergies and Home Medications Home medication list reviewed: Yes (no changes) Review of Systems Review of systems same as previous: Yes (no changes) Physical Exam Heart Rate: 67 O2 Saturation: 98 Height: 4 ft 10 in Weight: 164 lb Body Mass Index: 34.2 BMI Classification: Obese Impression and Plan 1. Obstructive Sleep Apnea-Hypopnea Syndrome, moderate, with lowest oxygen saturation of 20.8. Obviously this is the cause of the patients symptoms of unrefreshed sleep, and excessive daytime sleepiness. Positive pressure therapy could benefit hypertension, diabetes, depression and gastric reflux. As mentioned above, the patient will be started on nasal autoCPAP therapy with pressure set at 4-15 cmH2O. A manual titration study will be completed if unable to find optimal treatment pressure with office adjustments. Compliance guidelines also reviewed. A copy of compliance guidelines will be given for reference at check out. Because the apnea is more severe supine, I instructed to avoid sleeping supine using pillow positioning until able to start CPAP use. 2. Hypoxemia, mild, with the lowest oxygen saturation of 85 % and 5.7 minutes with SaO2 under 90%. Her baseline oxygen saturation was normal with an average oxygen saturation of 93%. * Nasal auto CPAP therapy, pressure at 4-15 cm H2O. * Attempt to lose weight. * Avoid alcohol consumption near bedtime. * Avoid supine sleep until using CPAP. * The patient is again cautioned about driving until sleepiness completely resolves. * Return one month after CPAP obtained. I will assess response to therapy and compliance at that time. Counseling Topics: Weight loss health impact Visit Type: In Office Time Spent with Patient (minutes): 20 Provider Statement: I spent 100% of the Face to Face Visit with the patient with greater than 50% spent counseling the patient and coordination of care.
== END 2021-05-25 09:29 | disposition home or self-care (01) ==
LOC: SC 09:28
PROVIDERS: ATTEND Nurse Practitioner Family
DX: G47.33 Obstructive sleep apnea (adult) (pediatric) (principal); R09.02 Hypoxemia
CPT/HCPCS: 99212; 99213

== ENCOUNTER 2021-08-03 06:49 | Day surgery (SDC) | payer BC ==
[2021-08-03] MEDS ORDERED: LACTATED RINGERS 1,000 ML IV ONE ×2 (07:12→09:28)
--- NOTE | 2021-08-03 07:57 | ANESTHESIA ---
Pre-Anesthesia VS, & Labs - Diagnosis change in bowel habits - Procedure colonoscopy Vital Signs: Temp Pulse Resp BP Pulse Ox 36.3 C L 89 16 147/82 H 96 08/03/21 07:00 08/03/21 07:00 08/03/21 07:00 08/03/21 07:00 08/03/21 07:00 Height: 4 ft 10 in Weight (kg): 74.2 kg Body Mass Index: 34.2 BMI Classification: Obese - NPO >8 hours - Is Patient ?: No Home Medications and Allergies Home Medications: Ambulatory Orders Famotidine [Pepcid] 20 mg PO DAILY PRN 07/29/21 Fenofibrate,Micronized [Fenofibrate] 134 mg PO DAILY 07/29/21 Losartan Potassium 25 mg PO DAILY 07/29/21 Venlafaxine [Effexor] 75 mg PO DAILY 07/29/21 Zolpidem Tartrate [Ambien] 10 mg PO QPM PRN 07/29/21 Levothyroxine [Synthroid] 25 mcg PO QDAC 09/06/18 rOPINIRole [Requip] 0.25 mg PO QPM 09/06/18 Famotidine [Pepcid] 20 mg PO DAILY PRN 07/29/21 Fenofibrate,Micronized [Fenofibrate] 134 mg PO DAILY 07/29/21 Losartan Potassium 25 mg PO DAILY 07/29/21 Venlafaxine [Effexor] 75 mg PO DAILY 07/29/21 Zolpidem Tartrate [Ambien] 10 mg PO QPM PRN 07/29/21 Allergies/Adverse Reactions: Allergies Allergy/AdvReac Type Severity Reaction Status Date / Time No Known Drug Allergies Allergy Verified 03/11/20 11:58 Anes History & Medical History - Anesthetic History Anesthesia Complications: reports: No previous complications Family history of Anesthesia Complications: Denies Family history of Malignant Hyperthermia: Denies - Medical History Cardiovascular: reports: Hypertension, High cholesterol Pulmonary: reports: Sleep apnea Gastrointestinal: reports: GERD Urinary: reports: None Neuro: reports: None Musculoskeletal: reports: None Endocrine/Autoimmune: reports: HyPOthyroidism, Other Blood Disorders: reports: None Skin: reports: None Smoking Status: Never smoker - Surgical History General: reports: Colonoscopy Gynecologic: reports: Tubal ligation, 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 Orthopedic: reports: Spine surgery Exam General: Alert, Oriented x3, Cooperative Dental: WNL Mouth Openin Fingerbreadth Neck Mobility: Normal Mallampati classification: II Thyromental Distance: 4-6 cm Respiratory: Lungs clear Cardiovascular: Regular rate Plan Anesthesia Type: Total IV Consent for Procedure(s) Verified and Reviewed: Yes Code Status: Attempt Resuscitation ASA classification: 3-Severe systemic disease Is this case an emergency?: No
[2021-08-03] MEDS ORDERED: PROPOFOL 500 MG/50 ML 500 MG/50 ML VIAL ONE (08:39)
[2021-08-03] MEDS ORDERED: LIDOCAINE 1% ABBOJECT 50 MG/5 ML SYRINGE ONE (08:39)
[2021-08-03] MEDS ORDERED: LACTATED RINGERS 400 ML IV ONE (09:09)
[2021-08-03 09:22] VITALS: BP 106/74
--- NOTE | 2021-08-03 14:18 | ANESTHESIA POST OP EVALUATION ---
Anesthesia Post Eval - Post Anesthesia Eval Vitals: Last Vital Signs Temp 36.3 C L 08/03/21 09:21 Pulse 72 08/03/21 09:21 Resp 18 08/03/21 09:21 BP 106/74 08/03/21 09:21 Pulse Ox 97 08/03/21 09:21 CV Function Including HR & BP: Stable Pain Control: Satisfactory Nausea & Vomiting: Negative Mental Status: Baseline Respiratory Status: Airway Patent Hydration Status: Satisfactory Anesthesia Complications: None
== END 2021-08-03 06:50 | disposition home or self-care (01) ==
LOC: SDS 06:49
PROVIDERS: ATTEND Surgery
PROC: 0DBE8ZX Excision of Large Intestine, Via Natural or Artificial Opening Endoscopic, Diagnostic (ICD-10-PCS; principal; 2021-08-03 08:15)
DX: R19.4 Change in bowel habit (principal); K64.8 Other hemorrhoids; G47.30 Sleep apnea, unspecified; Z99.89 Dependence on other enabling machines and devices; E66.9 Obesity, unspecified; Z68.34 Body mass index [BMI] 34.0-34.9, adult
CPT/HCPCS: 45380; 81599; 83630; 87015; 87177; 87209; 87272; 87329; 87493; J7120

== ENCOUNTER 2021-10-19 06:40 | Outpatient (CLI) | payer BC ==
[2021-10-19 07:21] LABS: ALBUMIN 4.7 g/dL (3.2-5.5); ALBUMIN/GLOBULIN RATIO 1.6 (1.0-2.2); ALKALINE PHOSPHATASE 51 IU/L (42-121); ALT ALANINE AMINOTRANSFERASE 17 IU/L (10-60); AST ASPARTATE AMINOTRANSFERASE 23 IU/L (10-42); BILIRUBIN,TOTAL 0.5 mg/dL (0.2-1.0); BUN - BLOOD UREA NITROGEN 20 mg/dL (6-20); CALCIUM 9.4 mg/dL (8.5-10.3); CARBON DIOXIDE - CO2 25 mmol/L (21-32); CHLORIDE 101 mmol/L (101-111); CHOLESTEROL 229 mg/dL; CREATININE 0.8 mg/dL (0.4-1.0); GFR - MDRD 74 (>89); GLUCOSE 123 mg/dL (70-100); HDL CHOLESTEROL 46 mg/dL; LDL CHOLESTEROL,CALCULATED 147 mg/dL; LDL/HDL RATIO 3.2 (<4.4); POTASSIUM 3.7 mmol/L (3.5-5.0); SODIUM 136 mmol/L (135-145); TOTAL PROTEIN 7.7 g/dL (6.7-8.2); TRIGLYCERIDES 179 mg/dL; VLDL CHOLESTEROL 36 mg/dL
[2021-10-19 10:53] LABS: ESTIMATED AVERAGE GLUCOSE 105 mg/dL (70-100); HEMOGLOBIN A1c% 5.3 % (4.27-6.07)
== END 2021-10-19 06:41 | disposition home or self-care (01) ==
LOC: LAB 06:40
PROVIDERS: ATTEND Family Medicine
DX: E11.9 Type 2 diabetes mellitus without complications (principal)
CPT/HCPCS: 36415; 80053; 80061; 83036; 83721

== ENCOUNTER 2023-01-16 06:49 | Outpatient (CLI) | payer BC ==
[2023-01-16 07:47] LABS: ALBUMIN 4.4 g/dL (3.2-5.5); ALBUMIN/GLOBULIN RATIO 1.3 (1.0-2.2); ALKALINE PHOSPHATASE 66 IU/L (42-121); ALT ALANINE AMINOTRANSFERASE 14 IU/L (10-60); AST ASPARTATE AMINOTRANSFERASE 22 IU/L (10-42); BILIRUBIN,TOTAL 0.6 mg/dL (0.2-1.0); BUN - BLOOD UREA NITROGEN 18 mg/dL (6-20); CALCIUM 9.2 mg/dL (8.5-10.3); CARBON DIOXIDE - CO2 27 mmol/L (21-32); CHLORIDE 103 mmol/L (101-111); CHOL/HDL RATIO 6.4 (<4.4); CHOLESTEROL 303 mg/dL; CREATININE 0.7 mg/dL (0.4-1.0); GFR - MDRD 87 (>89); GLUCOSE 143 mg/dL (70-100); HDL CHOLESTEROL 47 mg/dL; LDL CHOLESTEROL,CALCULATED 182 mg/dL; LDL/HDL RATIO 3.9 (<4.4); POTASSIUM 4.3 mmol/L (3.5-5.0); SODIUM 139 mmol/L (135-145); TOTAL PROTEIN 7.8 g/dL (6.7-8.2); TRIGLYCERIDES 368 mg/dL; VLDL CHOLESTEROL 74 mg/dL
[2023-01-16 12:57] LABS: ESTIMATED AVERAGE GLUCOSE 105 mg/dL (70-100); HEMOGLOBIN A1c% 5.3 % (4.27-6.07)
== END 2023-01-16 06:50 | disposition home or self-care (01) ==
LOC: LAB 06:49
PROVIDERS: ATTEND Family Medicine
DX: E11.9 Type 2 diabetes mellitus without complications (principal)
CPT/HCPCS: 36415; 80053; 80061; 83036; 83721

== ENCOUNTER 2023-02-16 11:36 | Emergency (ER) | payer BC ==
[2023-02-16] MEDS ORDERED: ASPIRIN CHEW 81 MG TABLET PO STA (11:39)
[2023-02-16] MEDS ORDERED: NITROGLYCERIN SL 0.4 MG TABLET SL STA (11:39)
--- NOTE | 2023-02-16 11:41 | ED Physician Documentation ---
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 Symptoms began at 1130. She does state that it feels like she has a charley horse behind her breast. Never had similar in the past. no n/v or diaphoresis. appears very uncomfortable Non-smoker. Does have a history of hypertension. She does take Crestor, levothyroxine losartan and Effexor. No previous history of cardiology visits Review of Systems Constitutional: reports: Reviewed and negative Throat: reports: Reviewed and negative Cardiac: reports: Chest pain / pressure. denies: Palpitations, Pedal edema, Calf pain Respiratory: reports: Reviewed and negative GI: reports: Reviewed and negative : reports: Reviewed and negative PD PAST MEDICAL HISTORY - Past Medical History Cardiovascular: Hypertension, High cholesterol Respiratory: Sleep apnea Neuro: None Endocrine/Autoimmune: Type 2 diabetes, HyPOthyroidism, Other GI: GERD BARREL BRANDER: None : None HEENT: Chronic vision loss Psych: Depression, Anxiety, Claustrophobia Musculoskeletal: None Derm: None - Past Surgical History Past Surgical History: Yes General: Colonoscopy Ortho: Spine surgery /BARREL BRANDER: Tubal ligation, 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 - Present Medications Home Medications: Ambulatory Orders Medication Instructions Recorded Confirmed Levothyroxine [Synthroid] 25 mcg PO QDAC 09/06/18 08/09/21 rOPINIRole [Requip] 0.25 mg PO QPM 09/06/18 08/09/21 Famotidine [Pepcid] 20 mg PO DAILY PRN 07/29/21 08/09/21 Fenofibrate,Micronized 134 mg PO DAILY 07/29/21 08/09/21 [Fenofibrate] Losartan Potassium 25 mg PO DAILY 07/29/21 08/09/21 Venlafaxine [Effexor] 75 mg PO DAILY 07/29/21 08/09/21 Zolpidem Tartrate [Ambien] 10 mg PO QPM PRN 07/29/21 08/09/21 - Allergies Allergies/Adverse Reactions: Allergies Allergy/AdvReac Type Severity Reaction Status Date / Time No Known Drug Allergies Allergy Verified 03/11/20 11:58 - Social History Does the pt smoke?: No Smoking Status: Never smoker Does the pt drink ETOH?: Yes Does the pt have substance abuse?: No - Immunizations Immunizations: TDAP >10years/unknown PD ED PE NORMAL - General General: Alert and oriented X 3, No acute distress, Well developed/nourished - HEENT HEENT: Atraumatic, Moist mucous membranes - Neck Neck: Supple, no meningeal sign, No adenopathy - Cardiac Cardiac: RRR, No murmur - Respiratory Respiratory: No respiratory distress, Clear bilaterally - Abdomen Abdomen: Normal bowel sounds, Soft - Back Back: No CVA TTP - Derm Derm: Normal color - Extremities Extremities: No deformity, No tenderness to palpate, Normal ROM s pain - Neuro Neuro: Alert and oriented X 3 Eye Opening: Spontaneous Motor: Obeys Commands Verbal: Oriented GCS Score: 15 Results - Vitals Vitals: Vital Signs - 24 hr 02/16/23 02/16/23 02/16/23 11:47 13:00 14:00 Temperature 36.3 C L Heart Rate 84 74 71 Respiratory 17 16 15 Rate Blood Pressure 186/113 H 140/77 H 134/75 H O2 Saturation 98 93 96 02/16/23 02/16/23 15:50 16:00 Temperature Heart Rate 68 69 Respiratory 16 18 Rate Blood Pressure 145/78 H 149/88 H O2 Saturation 95 96 Oxygen O2 Source Room air - EKG (time done) 1135 EKG releavant findings:: EKG personally interpreted by author of this note. Relevant findings are: Rate: Rate (enter#) (79) Rhythm: NSR [place]: Normal Intervals: Normal CT. No: Prolonged QT QRS: Normal Ischemia: Normal ST segments Compare to prior EKG: Old EKG unavailable Computer interpretation: Agree with computer - Labs Labs: Laboratory Tests 02/16/23 02/16/23 02/16/23 11:59 11:59 11:59 WBC 6.9 RBC 4.65 Hgb 12.8 Hct 38.7 MCV 83.2 MCH 27.5 MCHC 33.1 RDW 13.4 Plt Count 276 MPV 11.3 H Neut # (Auto) 4.3 Lymph # (Auto) 1.9 [place] # (Auto) 0.5 Eos # (Auto) 0.1 Baso # (Auto) 0.0 Absolute Nucleated RBC 0.00 Nucleated RBC % 0.0 PT 11.1 INR 1.0 Sodium Potassium Chloride Carbon Dioxide Anion Gap BUN Creatinine Estimated GFR (MDRD) Glucose Calcium Total Bilirubin AST ALT Alkaline Phosphatase Troponin I High Sens B-Natriuretic Peptide 7 Total Protein Albumin Globulin Albumin/Globulin Ratio Lipase 02/16/23 02/16/23 02/16/23 11:59 11:59 15:29 WBC RBC Hgb Hct MCV MCH MCHC RDW Plt Count MPV Neut # (Auto) Lymph # (Auto) [place] # (Auto) Eos # (Auto) Baso # (Auto) Absolute Nucleated RBC Nucleated RBC % PT INR Sodium 138 Potassium 3.9 Chloride 105 Carbon Dioxide 26 Anion Gap 7.0 BUN 18 Creatinine 0.8 Estimated GFR (MDRD) 74 L Glucose 109 H Calcium 9.2 Total Bilirubin 0.4 AST 27 ALT 23 Alkaline Phosphatase 72 Troponin I High Sens 4.0 4.1 B-Natriuretic Peptide Total Protein 7.9 Albumin 4.4 Globulin 3.5 Albumin/Globulin Ratio 1.3 Lipase 30 - Rads (name of study) cxr Relevant Findings:: EMP independent interpretation of test (No acute cardiopulmonary process) PD Medical Decision Making - ED course Complexity details: reviewed results, re-evaluated patient, considered differential, d/w patient ED course: 57-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 She is a non-smoker but does have a history of hypertension. No diabetes. She appeared very uncomfortable. When placed on the monitor her ECG was nonischemic normal sinus rhythm. She was noted to be modestly hypertensive in the 180s. I did obtain a twelve-lead EKG which per my interpretation showed no acute ischemic findings. No previous for comparison. A chest x-ray as interpreted by both the radiologist and myself shows no acute cardiopulmonary findings such as pneumonia, pneumothorax, pleural effusion or cardiomegaly. I did obtain CBC, electrolytes and initial high-sensitivity troponin. Unfortunately at this time the lab analyzer is down and there will be an approximate 3-hour delay for troponin results which may not be available until after 3 PM. However initially her CBC and chemistry are without acute findings. 1636: The analyzer became functional again around 1600. At this point I was able to evaluate her initial troponin which was negative. Subsequently a 4-hour troponin was repeated and remains negative. On reevaluation the patient is free of chest pain and otherwise well-appearing. She does have modest hypertension. Clinically history and exam is not consistent with a pneumonia, pneumothorax. Lower suspicion for ACS but given age and history of hypertension would likely benefit from outpatient referral for cardiac stress test. By Wells criteria low risk for DVT and history and symptoms are not consistent with this. On last exam alert, well-appearing and free of chest pain. She is discharged home in stable condition. The usual emergent return precautions were discussed for worsening symptoms. Departure - Departure Disposition: Home, Self Care Clinical Impression: Chest pain Qualifiers: Chest pain type: unspecified Qualified Code(s): R07.9 - Chest pain, unspecified Condition: Stable Record reviewed to determine appropriate education?: Yes Comments: Rosalia you developed chest pain while at work today. Your blood pressures were a little elevated. Your chest x-ray is normal. We did do the routine labs including CBC, electrolytes and 2 troponins. Both of your troponins were negative. As discussed I think it is important you follow-up with your primary doctor to obtain referral for a stress test. If you are developing worsening chest pain especially with any exertion, you have fainting episodes or becomes severely short of air then please return immediately to the ER.
--- NOTE | 2023-02-16 11:53 | XRAY Report ---
PROCEDURE: Chest 1 View X-Ray INDICATIONS: Chest Pain TECHNIQUE: One view of the chest was acquired. COMPARISON: None. FINDINGS: Surgical changes and devices: None. Lungs and pleura: No pleural effusions or pneumothorax. Lungs are clear. Mediastinum: Mediastinal contours appear normal. Heart size is normal. Bones and chest wall: No suspicious bony lesions. Overlying soft tissues appear unremarkable. IMPRESSION: No acute process. Reviewed by: Ngozi Pabon MD on 02/16/2023 11:52 AM PDT Approved by: Ngozi Pabon MD on 02/16/2023 11:52 AM PDT Station ID: [id number]
[2023-02-16 12:08] LABS: BASOPHILS % (AUTO) 0.6 %; EOSINOPHILS # (AUTO) 0.1 10^3/uL (0.0-0.7); EOSINOPHILS % (AUTO) 1.9 %; HCT - HEMATOCRIT 38.7 % (37.0-47.0); HGB - HEMOGLOBIN 12.8 g/dL (12.0-16.0); LYMPHOCYTES # (AUTO) 1.9 10^3/uL (1.5-3.5); LYMPHOCYTES % (AUTO) 26.9 %; MEAN CORPUSCULAR HEMOGLOBIN 27.5 pg (27.0-31.0); MEAN CORPUSCULAR HGB CONC 33.1 g/dL (32.0-36.0); MEAN CORPUSCULAR VOLUME 83.2 fL (81.0-99.0); MEAN PLATELET VOLUME 11.3 fL (7.9-10.8); MONOCYTES # (AUTO) 0.5 10^3/uL (0.0-1.0); MONOCYTES % (AUTO) 7.6 %; NEUTROPHILS # (AUTO) 4.3 10^3/uL (1.5-6.6); NEUTROPHILS % (AUTO) 62.7 %; PLT - PLATELET COUNT 276 10^3/uL (130-450); RED BLOOD COUNT 4.65 10^6/uL (4.20-5.40); RED CELL DISTRIBUTION WIDTH 13.4 % (12.0-15.0); WHITE BLOOD COUNT 6.9 x10^3/uL (4.8-10.8)
[2023-02-16 12:15] LABS: PT - PROTHROMBIN TIME 11.1 secs (9.9-12.6)
[2023-02-16 12:21] LABS: ALBUMIN 4.4 g/dL (3.2-5.5); ALBUMIN/GLOBULIN RATIO 1.3 (1.0-2.2); BILIRUBIN,TOTAL 0.4 mg/dL (0.2-1.0); CALCIUM 9.2 mg/dL (8.5-10.3); CREATININE 0.8 mg/dL (0.4-1.0); POTASSIUM 3.9 mmol/L (3.5-5.0); TOTAL PROTEIN 7.9 g/dL (6.7-8.2)
[2023-02-16 16:44] VITALS: BP 143/100
== END 2023-02-16 16:43 | disposition home or self-care (01) ==
LOC: ED 11:36
DX: R07.9 Chest pain, unspecified (principal); I10 Essential (primary) hypertension
CPT/HCPCS: 36415; 71045; 80053; 83690; 83880; 84443; 84484; 85025; 85610; 93005; 99283; 99284; A9270

== ENCOUNTER 2023-04-04 07:51 | Outpatient (CLI) | payer BC ==
--- NOTE | 2023-04-04 08:02 | CARDIAC PROCEDURE NOTE ---
Stress Test Report Service Date: 04/04/23 Service Time: 08:00 Ordering Provider: Lula Blum CFNP Indication for Test: Assess episodic substernal chest pain. 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 She recalls initially experiencing a headache, for which she took 2 Tylenol tabs, then about 30 minutes later started to develop a "charley horse" feeling behind her sternum, with subsequent radiation of discomfort to her left arm. This was quite uncomfortable and a new sensation for her. She had some lightheadedness but denies respiratory difficulty or diaphoresis. Her blood pressure was initially recorded at 186/[address] she was given a sublingual nitroglycerin with significant decrease in blood pressure, though she states today that the chest discomfort had already started to dissipate when she received the NTG. Her EKG was non-ischemic and troponins negative x 2. A few days later she had a similar episode at home, not as severe and again self- limited, but she has had no additional chest pain episodes since then. In addition to her active work in the ED she walks regularly with her 75 pound dog, without experiencing symptoms or a decrease in her exertional tolerance. She is on losartan 100 mg and amlodipine 5 mg daily, which she takes in the evening including last night, prior to today's study. Cardiac Risk Factors: Positive for hypertension treated for approximately 10 years, as well as hyperlipidemia (treated for several years with fenofibrate and more recently transitioned to rosuvastatin following a fasting lipid panel in January showing total cholesterol 303, LDLc 182 HDLc 47, TG 368); no history of prior tobacco smoking, diabetes or known family members with atherosclerotic disease. Type of Stress Test: ETT with Echocardiography Procedure: -Exercise Treadmill Test- After signing informed consent, the patient underwent rest echo imaging and then performed treadmill exercise using a Edenilson protocol. The patient exercised for 6 minutes 49 seconds and achieved a peak heart rate of 150 (91 percent predicted maximum heart rate for age), and an estimated workload of 8.3 METS. The test was terminated due to fatigue/shortness of breath. Resting heart rate: 78 Peak heart rate: 150 Normal response to exercise. Resting BP: 119/72 Peak BP: 203/68 Normal BP response to exercise. Rhythm during exercise: Sinus rhythm throughout. Symptoms: She denied experiencing any chest discomfort whatsoever. EKG at rest showed normal sinus rhythm, normal in all aspects. EKG at peak stress showed J-point depression with upsloping ST segments NOT meeting EKG criteria for ischemia. In Recovery HR and BP rapidly/normally decreased towards baseline levels. Echo imaging, performed at rest and with stress, will be reported separately. IErnesto MD, was present throughout this treadmill stress study and supervised it in its entirety. Summary: 1) Exercise tolerance slightly reduced for age and sex, as evidenced by MARIO of 5%. 2) Normal resting EKG. 3) Adequate level of exercise was achieved on this treadmill stress test. 4) Normal BP response to exercise. 5) No ischemic changes by EKG criteria were seen at peak stress. 6) Preliminary echo image interpretation reveals normal left ventricular size, wall thickness and systolic function, with appropriate hyperdynamic augmentation of all segments with exercise, indicating no evidence of prior infarct or inducible ischemia. No significant valvular abnormality or elevation of estimated pulmonary artery systolic pressure were seen on screening study. See s eparate report for more details. Conclusions and Recommendations: 1) In addition to favorable ETT and echo findings, Rosalia's BP response was consistent with excellent BP control with current amlodipine and losartan treatment. 2) She is scheduled For repeat fasting lipid measurements in a couple of weeks. Her LDLc goal should be less than 100 for continuing primary prevention of ASCVD complications.
== END 2023-04-04 07:52 | disposition home or self-care (01) ==
LOC: DI 07:51
PROVIDERS: ATTEND Nurse Practitioner Family
DX: R07.9 Chest pain, unspecified (principal); E78.5 Hyperlipidemia, unspecified; I10 Essential (primary) hypertension
CPT/HCPCS: 93016; 93017; 93018; 93350

== ENCOUNTER 2023-11-07 06:38 | Outpatient (CLI) | payer BC ==
[2023-11-07 07:07] LABS: BASOPHILS % (AUTO) 0.5 %; EOSINOPHILS # (AUTO) 0.1 10^3/uL (0.0-0.7); EOSINOPHILS % (AUTO) 2.1 %; HGB - HEMOGLOBIN 13.4 g/dL (12.0-16.0); LYMPHOCYTES # (AUTO) 1.7 10^3/uL (1.5-3.5); LYMPHOCYTES % (AUTO) 28.4 %; MEAN CORPUSCULAR HEMOGLOBIN 26.7 pg (27.0-31.0); MEAN CORPUSCULAR HGB CONC 31.9 g/dL (32.0-36.0); MEAN CORPUSCULAR VOLUME 83.8 fL (81.0-99.0); MEAN PLATELET VOLUME 9.3 fL (7.9-10.8); MONOCYTES # (AUTO) 0.4 10^3/uL (0.0-1.0); MONOCYTES % (AUTO) 7.1 %; NEUTROPHILS # (AUTO) 3.6 10^3/uL (1.5-6.6); NEUTROPHILS % (AUTO) 61.7 %; PLT - PLATELET COUNT 351 10^3/uL (130-450); RED BLOOD COUNT 5.01 10^6/uL (4.20-5.40); RED CELL DISTRIBUTION WIDTH 13.9 % (12.0-15.0); WHITE BLOOD COUNT 5.8 x10^3/uL (4.8-10.8)
[2023-11-07 07:22] LABS: ALBUMIN 4.6 g/dL (3.2-5.5); ALBUMIN/GLOBULIN RATIO 1.6 (1.0-2.2); ALKALINE PHOSPHATASE 75 IU/L (42-121); ALT ALANINE AMINOTRANSFERASE 13 IU/L (10-60); AST ASPARTATE AMINOTRANSFERASE 20 IU/L (10-42); BILIRUBIN,TOTAL 0.4 mg/dL (0.2-1.0); BUN - BLOOD UREA NITROGEN 14 mg/dL (6-20); CALCIUM 9.6 mg/dL (8.5-10.3); CARBON DIOXIDE - CO2 28 mmol/L (21-32); CHLORIDE 104 mmol/L (101-111); CHOL/HDL RATIO 3.8 (<4.4); CHOLESTEROL 180 mg/dL; CREATININE 0.8 mg/dL (0.6-1.3); GFR - MDRD 74 (>89); GLUCOSE 120 mg/dL (74-104); HDL CHOLESTEROL 47 mg/dL; LDL CHOLESTEROL,CALCULATED 75 mg/dL; LDL/HDL RATIO 1.6 (<4.4); POTASSIUM 4.1 mmol/L (3.5-4.5); SODIUM 137 mmol/L (135-145); TOTAL PROTEIN 7.5 g/dL (6.4-8.9); TRIGLYCERIDES 291 mg/dL (48-352); VLDL CHOLESTEROL 58 mg/dL
[2023-11-07 07:37] LABS: THYROID STIMULATING HORMONE 2.17 uIU/mL (0.34-5.60)
[2023-11-07 11:48] LABS: ESTIMATED AVERAGE GLUCOSE 103 mg/dL (70-100); HEMOGLOBIN A1c% 5.2 % (4.27-6.07)
== END 2023-11-07 06:39 | disposition home or self-care (01) ==
LOC: LAB 06:38
PROVIDERS: ATTEND Nurse Practitioner Family
DX: Z00.00 Encounter for general adult medical examination without abnormal findings (principal); I10 Essential (primary) hypertension; E78.5 Hyperlipidemia, unspecified; E11.9 Type 2 diabetes mellitus without complications; E03.9 Hypothyroidism, unspecified
CPT/HCPCS: 36415; 80053; 80061; 83036; 83721; 84443; 85025

== ENCOUNTER 2024-06-19 08:51 | Outpatient (CLI) | payer BC ==
--- NOTE | 2024-06-19 11:27 | Mammography Report ---
BILATERAL DIGITAL SCREENING MAMMOGRAM 3D/2D: 06/19/2024 CLINICAL: Routine screening. Comparison is made to exams dated: 04/05/2021 mammogram - [facility] and 01/11/2017 m ammogram - [facility]. There are scattered areas of fibroglandular density (category b / 25%-50% glandular tissue). No significant masses, calcifications, or other findings are seen in either breast. There has been no significant interval change. IMPRESSION: NEGATIVE There is no mammographic evidence of malignancy. A 1 year screening mammogram is recommended. Based on the Tyrer Cuzick model (a risk assessment model) the patient's lifetime risk is 5.5% and her 10 year risk is 1.9%. According to the ACR, ACS, and NCCN guidelines, an annual breast MRI exam lorelei g with mammogram is recommended if the patient's lifetime risk is 20% or greater. This exam was interpreted at Station ID: [id number]. NOTE: For mammograms, a report in lay terms will be sent to the patient. Approximately 15% of breast malignancies will not be visualized mammographically. In the management of a palpable breast mass, a negative mammogram must not discourage biopsy of a clinically suspicious lesion. Electronically Signed By: Tonya Guzman M.D., Ph.D. [email or web address]:06/19/2024 09:22:15 ACR BI-RADS Category 1: Negative 3341F PARENCHYMAL PATTERN: (A) - The breast(s) demonstrate(s) scattered fibroglandular densities. BI-RADS CATEGORY: (1) - 1 RECOMMENDATION: (ANNUAL) - Recommend routine annual screening mammography. [id number] 1 year screening LATERALITY: (B)
== END 2024-06-19 08:52 | disposition home or self-care (01) ==
LOC: DI 08:51
DX: Z12.31 Encounter for screening mammogram for malignant neoplasm of breast (principal)